=== PATIENT | female | born 1965 | race American Indian/Alaskan Native ===

== ENCOUNTER 2016-10-24 21:44 | Emergency (ER) | payer SELFPAY ==
--- NOTE | 2016-10-25 08:53 | Emergency Department Report ---
HPI - General Chief Complaint: Headache Time Seen by Provider: 10/25/16 08:47 - HPI HPI: Chief complaint: Headache HPI: Patient is a 51-year-old -[place] female with no previous history of hypertension but has not seen a doctor for some years who presents with a 2 day history of headache. Patient states it's on the left side of her head and the back of her head read no nausea vomiting or fever. No chest pain or shortness of breath. Gradual onset and throbbing in character. Patient does not have a history of headaches in the past. Mode of arrival: private car Source: Patient Began: 2 days ago Duration: 2 days Context: See above Quality: See above Severity: 10 out of 10 Improved with: Patient did not take anything Worsened with: Nothing Associated signs and symptoms: See above ED Past Medical Hx - Past Medical History Previous Medical History?: No - Surgical History Past Surgical History?: Yes Hx Cholecystectomy: Yes - Social History Smoking Status: Never Smoker Substance Use Type: Alcohol - Medications Home Medications: Home Medications Medication Instructions Recorded Confirmed Last Taken Type amLODIPine [Norvasc] 5 mg PO DAILY #30 tab 10/25/16 Unknown Rx traMADol [Ultram 50 MG tab] 50 mg PO Q6HR PRN #10 tablet 10/25/16 Unknown Rx ED Review of Systems ROS: Stated complaint: HEADACHE,ELEVATED BP Other details as noted in HPI ROS Constitutional: No fever ENT: No uri symptoms Cardiovascular: No chest pain Respiratory: No sob or cough GI: No nausea vomiting or diarrhea : No dysuria frequency or urgency, Skin: No rash Neuro: No focal weakness or numbness Psych: No depression Thompson/lymph: No edema Physical Exam - Physical Exam Vital Signs: Vital Signs 10/24/16 10/25/16 10/25/16 21:52 02:39 08:25 Temperature 97.9 F 98 F 97.7 F Pulse Rate 85 77 77 Respiratory 20 18 20 Rate Blood Pressure 166/95 164/90 151/84 Blood Pressure 166/95 [Left] O2 Sat by Pulse 97 100 100 Oximetry Physical Exam: GENERAL: The patient is well-developed well-nourished . HEENT: Normocephalic. Atraumatic. Extraocular motions are intact. Patient has moist mucous membranes. NECK: Supple. No meningitic signs are noted. There is no adenopathy noted. CHEST/LUNGS: Clear to auscultation. There is no respiratory distress noted. HEART/CARDIOVASCULAR: Regular. There is no tachycardia. There is no gallop rub or murmur. ABDOMEN: Abdomen is soft, nontender. Patient has normal bowel sounds. There is no abdominal distention. SKIN: There is no rash. There is no edema. There is no diaphoresis. NEURO: The patient is awake, alert, and oriented. The patient is cooperative. The patient has no focal neurologic deficits. Finger to nose intact. The patient has normal speech. MUSCULOSKELETAL: There is no tenderness or deformity. There is no limitation range of motion. There is no evidence of acute injury. ED Course Vital Signs 10/24/16 10/25/16 10/25/16 21:52 02:39 08:25 Temperature 97.9 F 98 F 97.7 F Pulse Rate 85 77 77 Respiratory 20 18 20 Rate Blood Pressure 166/95 164/90 151/84 Blood Pressure 166/95 [Left] O2 Sat by Pulse 97 100 100 Oximetry - Reevaluation(s) Reevaluation #1: 10/25/16 12:53 Patient given Toradol 30 mg and Reglan 10 mg IV with improvement of her headache. ED Medical Decision Making - Lab Data Result diagrams: 10/25/16 11:52 10/25/16 11:52 - Radiology Data Radiology results: report reviewed (CT scan shows no acute process.) Critical care attestation.: If time is entered above; I have spent that time in minutes in the direct care of this critically ill patient, excluding procedure time. ED Disposition Clinical Impression: Hypertension Qualifiers: Hypertension type: essential hypertension Qualified Code(s): I10 - Essential ( primary) hypertension Headache Qualifiers: Headache type: other vascular headache Qualified Code(s): G44.1 - Vascular headache, not elsewhere classified Disposition: DISCHARGED TO HOME OR SELFCARE Is pt being admited?: No Does the pt Need Aspirin: No Condition: Stable Instructions: Hypertension (ED) Prescriptions: amLODIPine [Norvasc] 5 mg PO DAILY #30 tab traMADol [Ultram 50 MG tab] 50 mg PO Q6HR PRN #10 tablet PRN Reason: Pain Referrals: LOIS THOMPSON MD [Primary Care Provider] - 3-5 Days PEDRO LUIS NORWOOD MD [Staff Physician] - 7-10 days (Follow-up with Dr. Norwood or [facility] to recheck your blood pressure in one week.) [facility] [Provider Group] - 7-10 days Time of Disposition: 12:57
--- NOTE | 2016-10-25 10:07 | Cat Scan Report ---
CT HEAD WITHOUT CONTRAST INDICATION: Headache, hypertension. COMPARISON: None similar at this institution. FINDINGS: Noncontrast head CT demonstrates normal ventricles and sulci without acute or recent infarct, hemorrhage, mass effect or midline shift. Slight periventricular hypodensities. No abnormal extra-axial fluid collections. Posterior fossa structures and basilar cisterns appear within normal limits. Unremarkable eye globes. Approximately 3 mm left maxillary sinus mucous retention cyst. Clear remainder imaged paranasal sinuses and mastoid air cells. Intact calvarium. Normal overlying scalp soft tissues. Few radiopaque dental material and missing teeth incidentally noted. CONCLUSION: No acute intracranial CT abnormality, as described. Thank you for the opportunity to participate in this patient's care.
[2016-10-25] MEDS ORDERED: TORADOL IV ONE (11:35)
[2016-10-25] MEDS ORDERED: REGLAN IV ONE (11:35)
[2016-10-25] MEDS ORDERED: NACL 0.9% 1000 ML IV ONE (11:35)
[2016-10-25 12:15] LABS: Basophils % (Auto) 0.7 % (0.0-1.8); Eosinophils % (Auto) 3.4 % (0.0-4.3); Hematocrit 43.1 % (30.3-42.9); Hemoglobin 14.1 gm/dl (10.1-14.3); Mean Corpuscular HGB Conc 33 % (30-34); Mean Corpuscular Hemoglobin 29 pg (28-32); Mean Corpuscular Volume 88 fl (79-97); Platelet Count 264 K/mm3 (140-440); Red Blood Count 4.89 M/mm3 (3.65-5.03); White Blood Count 5.3 K/mm3 (4.5-11.0)
[2016-10-25 12:29] LABS: Blood Urea Nitrogen 11 mg/dL (7-17); Calcium 9.1 mg/dL (8.4-10.2); Carbon Dioxide 24 mmol/L (22-30); Chloride 100.8 mmol/L (98-107); Glucose 91 mg/dL (65-100); Sodium 138 mmol/L (137-145)
[2016-10-25] MEDS ORDERED: NORVASC PO ONE (12:49)
[2016-10-25] MEDS ORDERED: NORCO 5/325 ONE (12:49)
[2016-10-25 12:54] VITALS: BP 140/78
[2016-10-25 12:55] LABS: Anion Gap 18 mmol/L
[2016-10-25 12:56] LABS: Potassium 4.3 mmol/L (3.6-5.0)
[2016-10-25] MEDS ORDERED: NORCO 5/325 PO ONE (12:58)
== END 2016-10-25 13:19 | disposition home or self-care (01) ==
LOC: ED 21:44
DX: I10 Essential (primary) hypertension (principal); G44.1 Vascular headache, not elsewhere classified; Z90.49 Acquired absence of other specified parts of digestive tract
CPT/HCPCS: 36415; 70450; 80048; 85025; 96361; 96374; 96375; 99284; J1885; J2765; J7030